=== PATIENT | male | born 1990 | race Two or more races ===

== ENCOUNTER 2017-05-06 17:41 | Emergency (ER) | payer MEDICAID ==
[~2017-05-06] VITALS: Ht 177.8 cm; Wt 85.0 kg
[2017-05-06] MEDS ORDERED: DIPH,PERTUSS(ACELL),TET VAC/PF 0.5 ML IM-VACC ONE ×2 (18:30→18:32)
[2017-05-06] MEDS ORDERED: BACITRACIN ZINC OINT 500U/GM, 0.9 GM ONE (18:32)
[2017-05-06] MEDS ORDERED: LIDOCAINE 1%, 20ML INFIL ONE (21:30)
[2017-05-06] MEDS ORDERED: LIDOCAINE 1%, 20ML ONE (21:34)
[2017-05-06 22:41] VITALS: BP 123/78
== END 2017-05-06 23:07 | disposition home or self-care (01) ==
LOC: ED 23:01
DX: S01.21XA Laceration without foreign body of nose, initial encounter (principal); S01.411A Laceration without foreign body of right cheek and temporomandibular area, initial encounter; S01.81XA Laceration without foreign body of other part of head, initial encounter; F10.120 Alcohol abuse with intoxication, uncomplicated; W10.8XXA Fall (on) (from) other stairs and steps, initial encounter; Y93.89 Activity, other specified; Y92.89 Other specified places as the place of occurrence of the external cause; Y99.8 Other external cause status
CPT/HCPCS: 70450; 70486; 72125; 90471; 90715; 99284; J3490

== ENCOUNTER 2020-11-14 15:40 | Emergency (ER) | payer SELFPAY ==
[~2020-11-14] VITALS: Ht 177.8 cm; Wt 101.6 kg
[2020-11-14 15:53] VITALS: BP 134/81
== END 2020-11-14 16:40 | disposition home or self-care (01) ==
LOC: ED 16:26
DX: K01.1 Impacted teeth (principal); H92.09 Otalgia, unspecified ear
CPT/HCPCS: 99283